=== PATIENT | female | born 1955 | race Caucasian/White ===

== ENCOUNTER → 2020-12-19 | Outpatient (CLI) | payer BC ==
[~2020-12-19] MED LIST: ANTIVERT 25MG T25 MG PO; ASPIR 8181 MG PO; MOBIC15 MG PO
== END ==
LOC: KOH-I 11:49
DX: M79.672 Pain in left foot (principal)
CPT/HCPCS: 73610; 73630

== ENCOUNTER → 2021-05-25 | Outpatient (CLI) | payer OTHER | LOC: EXRD 10:41 | DX: M46.1 Sacroiliitis, not elsewhere classified (principal) | CPT/HCPCS: 72202 ==

== ENCOUNTER → 2022-03-12 | Outpatient (CLI) | payer OTHER | LOC: RAD 10:55 | DX: M17.11 Unilateral primary osteoarthritis, right knee (principal); M25.511 Pain in right shoulder | CPT/HCPCS: 73562 ==

== ENCOUNTER → 2022-03-20 | Outpatient (CLI) | payer OTHER | LOC: KOH-I 10:16 | DX: M17.11 Unilateral primary osteoarthritis, right knee (principal); M23.51 Chronic instability of knee, right knee | CPT/HCPCS: 73721 ==